=== PATIENT | female | born 1970 | race Two or more races ===

== ENCOUNTER 2018-04-04 20:40 | Inpatient (IN) ==
[2018-04-04] MEDS ORDERED: PROPOFOL 1,000 MG/100 ML BOTTLE IV ONE (20:52)
[2018-04-04] MEDS ORDERED: VECURONIUM 10 MG VIAL IV ONE (20:52)
[2018-04-04] MEDS: PROPOFOL 1,000 MG/100 ML BOTTLE IV SCH (21:00)
[2018-04-04] MEDS ORDERED: VECURONIUM 10 MG VIAL IV STA (21:10)
[2018-04-04 21:21] LABS: ABG Base Excess -3.4 MMOL/L (-2.5-2.5); ABG HCO3 21.7 MMOL/L (20-26); ABG Oxygen Saturation 99.1 % (95-100); ABG PCO2 34.6 MM HG (35-48); ABG PH 7.387 (7.35-7.45); ABG TCO2 17.4 MMOL/L (23-27)
[2018-04-04] MEDS ORDERED: LABETALOL 20 MG/4 ML SYRINGE IV STA ×2 (21:23→23:30)
[2018-04-04 21:35] LABS: Basophils # 0.1 10*3/uL (0.0-0.2); Basophils % 0.7 % (0.0-0.8); Eosinophils % 0.2 % (0.00-10.9); Hematocrit 57.6 VOL% (35.7-47.0); Hemoglobin 18.8 GM/DL (12.0-16.0); Immature Granulocytes % 0.3 %; Immature Granulocytes Absolute 0.06 #; Lymphocytes # 1.3 10*3/uL (1.4-4.0); Lymphocytes % 7.7 % (21.3-54.2); Mean Corpuscular HGB Conc 32.6 GM/DL (32-36); Mean Corpuscular Hemoglobin 31 PG (27-34); Mean Corpuscular Volume 95.5 FL (87-102); Mean Platelet Volume 10.1 FL (9.6-12.0); Monocytes # 0.5 10*3/uL (0.11-0.8); Monocytes % 2.9 % (1.7-12.7); Neutrophils # 15.4 10*3/uL (1.4-7.4); Neutrophils % 88.2 % (38.7-73.9); Platelet Count 307 T/CUMM (130-400); Red Blood Count 6.03 MC/CUMM (3.8-5.5); White Blood Count 17.4 T/CUMM (4-12)
[2018-04-04 22:00] LABS: Alanine Aminotransferase 26 U/L (13-56); Albumin 1.7 G/DL (3.4-5.0); Alkaline Phosphatase 145 U/L (45-117); Aspartate Amino Transferase 38 U/L (0-37); Bilirubin,Total < 0.39 MG/DL (0.2-1.0); Blood Urea Nitrogen 27 MG/DL (7-18); CKMB % 3.6 %; Calcium 8.7 MG/DL (8.5-10.1); Glucose 152 MG/DL (74-106); Osmolality,Calculated 280.8 MOS/KG (273-304); Potassium 4.3 MMOL/L (3.5-5.1); Sodium 137 MMOL/L (136-145); Total Protein 7.5 G/DL (6.4-8.3)
[2018-04-04] MEDS ORDERED: ONDANSETRON 4 MG/2 ML VIAL IV PRN (23:43)
[2018-04-04] MEDS ORDERED: GLUCAGON 1 MG VIAL IM PRN (23:43)
[2018-04-04] MEDS ORDERED: ALBUTEROL/IPRATROPIUM 3 ML NEB RESP TX PRN (23:43)
[2018-04-04] MEDS ORDERED: ALBUMIN 25% 50 GM in PREMIX 1 EACH IV ONE (23:43)
[2018-04-04] MEDS ORDERED: DEXTROSE 50% 25 GM/50 ML VIAL IV PRN (23:43)
[2018-04-05] MEDS: METOPROLOL TARTRATE 50 MG TABLET PO SCH ×3 (00:15→21:13)
[2018-04-05] MEDS: SODIUM CHLORIDE 0.9% 1,000 ML IV SCH ×3 (00:15→19:35)
[2018-04-05] MEDS: DOCUSATE SODIUM 100 MG CAPSULE NG SCH ×3 (00:15→21:13)
[2018-04-05] MEDS: INSULIN REGULAR 100 UNIT/ML SUBCUT SCH ×4 (00:15→18:26)
[2018-04-05] MEDS: cefTRIAXone 1,000 MG in SYRINGE 1 EACH IV SCH ×3 (00:32→23:58)
[2018-04-05 01:12] LABS: Apearance,Urine CLOUDY (Clear); Bacteria,Urine Many /HPF (Few); Bilirubin,Urine Negative (Negative); Blood, Urine Small mg/dL (Negative); Glucose,Urine (UA) >=500 mg/dL (Negative); Hyaline Casts,Urine 10 /LPF (0-3); Ketones,Urine 20 mg/dL (Negative); Mucus,Urine Occasional /LPF (Occasional); Nitrite,Urine Negative (Negative); Protein,Urine >=500 MG/DL; RBC,Urine 14 /HPF (0-4); Squamous Epithelial Cell,Urine Occasional /HPF (0-10); Urine Color Yellow (Yellow); Urine Specific Gravity 1.016 (1.001-1.035); Urine Urobilinogen < 2.0 EU/DL (0.2-1.0); WBC,Urine 166 /HPF (0-6)
[2018-04-05 01:15] LABS: ABG Base Excess -3.8 MMOL/L (-2.5-2.5); ABG HCO3 21.3 MMOL/L (20-26); ABG Oxygen Saturation 99.4 % (95-100); ABG PCO2 40.8 MM HG (35-48); ABG PH 7.338 (7.35-7.45)
[2018-04-05] MEDS: ALBUTEROL/IPRATROPIUM 3 ML NEB RESP TX SCH ×4 (01:15→20:01)
[2018-04-05 01:30] LABS: Barbiturates Screen,Urine Negative (Negative); Benzodiazepines Screen,Urine Positive (Negative); Cannabinoid Screen,Urine Negative (Negative); Opiate Screen,Urine Positive (Negative); Phencyclidine Screen,Urine Negative (Negative)
[2018-04-05] MEDS: hydrALAZINE 20 MG/1 ML VIAL IV PRN (02:20)
[2018-04-05 06:22] LABS: Basophils # 0.1 10*3/uL (0.0-0.2); Basophils % 0.5 % (0.0-0.8); Eosinophils # 0.2 10*3/uL (0.0-0.87); Hemoglobin 11.9 GM/DL (12.0-16.0); Immature Granulocytes % 0.3 %; Immature Granulocytes Absolute 0.05 #; Lymphocytes # 2.4 10*3/uL (1.4-4.0); Lymphocytes % 16.7 % (21.3-54.2); Mean Corpuscular HGB Conc 32.2 GM/DL (32-36); Mean Corpuscular Hemoglobin 31 PG (27-34); Mean Corpuscular Volume 95.1 FL (87-102); Monocytes # 0.9 10*3/uL (0.11-0.8); Monocytes % 5.8 % (1.7-12.7); Neutrophils % 75.7 % (38.7-73.9); Platelet Count 206 T/CUMM (130-400); Red Blood Count 3.89 MC/CUMM (3.8-5.5); Red Cell Distribution Width 13.8 % (9.3-17.3); White Blood Count 14.6 T/CUMM (4-12)
[2018-04-05 07:12] LABS: Albumin 2.2 G/DL (3.4-5.0); Calcium 7.9 MG/DL (8.5-10.1); Potassium 4.2 MMOL/L (3.5-5.1)
[2018-04-05] MEDS: amLODIPine 10 MG TABLET PO SCH (09:07)
[2018-04-05] MEDS: ENOXAPARIN 30 MG/0.3 ML SYRINGE SUBCUT SCH (09:07)
[2018-04-05] MEDS: PANTOPRAZOLE 40 MG VIAL IV SCH (09:08)
[2018-04-05] MEDS: PROPOFOL 1,000 MG/100 ML BOTTLE IV SCH (09:21)
[2018-04-05] MEDS ORDERED: SODIUM CHLORIDE 0.9% 1,000 ML IV ONE (17:42)
[2018-04-05] MEDS: fentaNYL 100 MCG/2 ML VIAL IV PRN (21:13)
[2018-04-06] MEDS: INSULIN REGULAR 100 UNIT/ML SUBCUT SCH ×4 (00:04→17:59)
[2018-04-06] MEDS: PROPOFOL 1,000 MG/100 ML BOTTLE IV SCH (00:56)
[2018-04-06] MEDS: ALBUTEROL/IPRATROPIUM 3 ML NEB RESP TX SCH ×4 (01:11→19:49)
[2018-04-06 03:36] LABS: Basophils # 0.1 10*3/uL (0.0-0.2); Basophils % 0.4 % (0.0-0.8); Eosinophils # 0.2 10*3/uL (0.0-0.87); Eosinophils % 1.2 % (0.00-10.9); Hematocrit 36.8 VOL% (35.7-47.0); Immature Granulocytes % 0.4 %; Immature Granulocytes Absolute 0.05 #; Lymphocytes # 1.6 10*3/uL (1.4-4.0); Lymphocytes % 11.3 % (21.3-54.2); Mean Corpuscular HGB Conc 32.6 GM/DL (32-36); Mean Corpuscular Hemoglobin 31 PG (27-34); Mean Corpuscular Volume 96.3 FL (87-102); Mean Platelet Volume 10.3 FL (9.6-12.0); Monocytes % 7.2 % (1.7-12.7); Neutrophils % 79.5 % (38.7-73.9); Platelet Count 211 T/CUMM (130-400); Red Blood Count 3.82 MC/CUMM (3.8-5.5); Red Cell Distribution Width 14.5 % (9.3-17.3); White Blood Count 13.8 T/CUMM (4-12)
[2018-04-06 03:46] LABS: ABG Base Excess -6.6 MMOL/L (-2.5-2.5); ABG HCO3 19.1 MMOL/L (20-26); ABG PCO2 39.2 MM HG (35-48); ABG PH 7.302 (7.35-7.45); ABG TCO2 17.3 MMOL/L (23-27)
[2018-04-06] MEDS: SODIUM CHLORIDE 0.9% 1,000 ML IV SCH (04:09)
[2018-04-06 04:22] LABS: Calcium 7.7 MG/DL (8.5-10.1); Osmolality,Calculated 291.8 MOS/KG (273-304); Potassium 3.9 MMOL/L (3.5-5.1)
[2018-04-06] MEDS: ACETAMINOPHEN 500 MG TABLET PO PRN ×2 (05:01→20:21)
[2018-04-06] MEDS: PIPERACILLIN/TAZOBACTAM 3,375 MG in SODIUM CHLORIDE 0.9% 100 ML IV SCH ×3 (05:01→20:29)
[2018-04-06 06:12] LABS: Pt O2 Delivery Device Ventilator
[2018-04-06 06:13] LABS: ABG Base Excess -7.6 MMOL/L (-2.5-2.5); ABG HCO3 18.7 MMOL/L (20-26); ABG Oxygen Saturation 97.9 % (95-100); ABG PH 7.278 (7.35-7.45); ABG PO2 128.5 MM HG (80-95)
[2018-04-06] MEDS: SODIUM BICARB INJ 100 MEQ in DEXTROSE 5% 1,000 ML IV SCH ×2 (08:52→20:27)
[2018-04-06] MEDS: PANTOPRAZOLE 40 MG VIAL IV SCH (08:52)
[2018-04-06] MEDS: amLODIPine 10 MG TABLET PO SCH (08:53)
[2018-04-06] MEDS: ENOXAPARIN 30 MG/0.3 ML SYRINGE SUBCUT SCH (08:53)
[2018-04-06] MEDS: HALOPERIDOL 5 MG/ML AMP IV SCH ×2 (08:53→20:22)
[2018-04-06] MEDS: DOCUSATE SODIUM 100 MG CAPSULE NG SCH ×2 (08:53→20:22)
[2018-04-06] MEDS: METOPROLOL TARTRATE 50 MG TABLET PO SCH ×2 (08:53→20:21)
[2018-04-06] MEDS: fentaNYL 100 MCG/2 ML VIAL IV PRN ×2 (13:18→17:10)
[2018-04-06] MEDS: hydrALAZINE 20 MG/1 ML VIAL IV PRN ×2 (15:15)
[2018-04-07] MEDS: INSULIN REGULAR 100 UNIT/ML SUBCUT SCH ×4 (00:39→18:11)
[2018-04-07] MEDS: ALBUTEROL/IPRATROPIUM 3 ML NEB RESP TX SCH ×4 (01:47→18:35)
[2018-04-07] MEDS: hydrALAZINE 20 MG/1 ML VIAL IV PRN ×4 (02:24→18:11)
[2018-04-07] MEDS: fentaNYL 100 MCG/2 ML VIAL IV PRN ×2 (04:24→06:08)
[2018-04-07] MEDS: PIPERACILLIN/TAZOBACTAM 3,375 MG in SODIUM CHLORIDE 0.9% 100 ML IV SCH ×3 (04:27→21:06)
[2018-04-07 04:42] LABS: ABG Base Excess -0.4 MMOL/L (-2.5-2.5); ABG Oxygen Saturation 96.9 % (95-100); ABG PCO2 45.1 MM HG (35-48); ABG PH 7.358 (7.35-7.45); ABG PO2 93.3 MM HG (80-95); ABG TCO2 22.5 MMOL/L (23-27); Allen Test Positive; Pt O2 Delivery Device Ventilator
[2018-04-07 05:33] LABS: Basophils % 0.3 % (0.0-0.8); Eosinophils # 0.4 10*3/uL (0.0-0.87); Eosinophils % 3.5 % (0.00-10.9); Hematocrit 35.4 VOL% (35.7-47.0); Hemoglobin 11.7 GM/DL (12.0-16.0); Immature Granulocytes % 0.5 %; Immature Granulocytes Absolute 0.06 #; Lymphocytes # 1.7 10*3/uL (1.4-4.0); Lymphocytes % 14.7 % (21.3-54.2); Mean Corpuscular HGB Conc 33.1 GM/DL (32-36); Mean Corpuscular Hemoglobin 32 PG (27-34); Mean Corpuscular Volume 95.9 FL (87-102); Mean Platelet Volume 10.7 FL (9.6-12.0); Monocytes # 0.8 10*3/uL (0.11-0.8); Neutrophils # 8.8 10*3/uL (1.4-7.4); Platelet Count 194 T/CUMM (130-400); Red Blood Count 3.69 MC/CUMM (3.8-5.5); Red Cell Distribution Width 14.1 % (9.3-17.3); White Blood Count 11.9 T/CUMM (4-12)
[2018-04-07 06:04] LABS: Prealbumin 9.5 MG/DL (20-40)
[2018-04-07 06:09] LABS: Albumin 1.6 G/DL (3.4-5.0); Bilirubin,Total 1.1 MG/DL (0.2-1.0); Calcium 7.9 MG/DL (8.5-10.1); Osmolality,Calculated 297.7 MOS/KG (273-304); Potassium 3.5 MMOL/L (3.5-5.1); Thyroid Stimulating Hormone 1.37 uIU/ml (0.358-3.74)
[2018-04-07] MEDS: SODIUM BICARB INJ 100 MEQ in DEXTROSE 5% 1,000 ML IV SCH ×2 (07:51→18:12)
[2018-04-07] MEDS ORDERED: POTASSIUM CHLORIDE 20 MEQ TABLET PO PRN (08:09)
[2018-04-07] MEDS ORDERED: PANTOPRAZOLE 40 MG TABLET PO SCH (09:00)
[2018-04-07] MEDS: HALOPERIDOL 5 MG/ML AMP IV SCH ×2 (10:09→21:11)
[2018-04-07] MEDS: LANSOPRAZOLE ODT 30 MG TABLET NG SCH (10:09)
[2018-04-07] MEDS: METOPROLOL TARTRATE 50 MG TABLET PO SCH ×2 (10:09→21:08)
[2018-04-07] MEDS: amLODIPine 10 MG TABLET PO SCH (10:09)
[2018-04-07] MEDS: DOCUSATE SODIUM 100 MG CAPSULE NG SCH ×2 (10:09→21:07)
[2018-04-07] MEDS: hydrALAZINE 25 MG TABLET PO SCH ×2 (10:10→15:28)
[2018-04-07] MEDS: ENOXAPARIN 30 MG/0.3 ML SYRINGE SUBCUT SCH (10:10)
[2018-04-07 12:09] LABS: ABG Base Excess 0.8 MMOL/L (-2.5-2.5); ABG HCO3 25.2 MMOL/L (20-26); ABG Oxygen Saturation 98.4 % (95-100); ABG PCO2 42.7 MM HG (35-48); ABG PH 7.392 (7.35-7.45); ABG TCO2 23.1 MMOL/L (23-27)
[2018-04-08] MEDS: hydrALAZINE 20 MG/1 ML VIAL IV PRN ×3 (00:35→15:11)
[2018-04-08] MEDS: INSULIN REGULAR 100 UNIT/ML SUBCUT SCH ×4 (00:35→17:48)
[2018-04-08] MEDS: ALBUTEROL/IPRATROPIUM 3 ML NEB RESP TX SCH ×4 (01:28→19:08)
[2018-04-08] MEDS ORDERED: LABETALOL 20 MG/4 ML SYRINGE IV ONE (02:36)
[2018-04-08] MEDS: PIPERACILLIN/TAZOBACTAM 3,375 MG in SODIUM CHLORIDE 0.9% 100 ML IV SCH ×3 (04:40→20:28)
[2018-04-08 04:41] LABS: Basophils # 0.1 10*3/uL (0.0-0.2); Basophils % 0.4 % (0.0-0.8); Eosinophils # 0.5 10*3/uL (0.0-0.87); Eosinophils % 4.1 % (0.00-10.9); Hematocrit 37.4 VOL% (35.7-47.0); Hemoglobin 12.1 GM/DL (12.0-16.0); Immature Granulocytes % 0.5 %; Immature Granulocytes Absolute 0.06 #; Lymphocytes # 1.5 10*3/uL (1.4-4.0); Lymphocytes % 12.9 % (21.3-54.2); Mean Corpuscular HGB Conc 32.4 GM/DL (32-36); Mean Corpuscular Hemoglobin 31 PG (27-34); Mean Corpuscular Volume 96.1 FL (87-102); Mean Platelet Volume 10.6 FL (9.6-12.0); Monocytes # 0.9 10*3/uL (0.11-0.8); Monocytes % 7.6 % (1.7-12.7); Neutrophils # 8.9 10*3/uL (1.4-7.4); Neutrophils % 74.5 % (38.7-73.9); Platelet Count 230 T/CUMM (130-400); Red Blood Count 3.89 MC/CUMM (3.8-5.5); Red Cell Distribution Width 13.6 % (9.3-17.3); White Blood Count 11.9 T/CUMM (4-12)
[2018-04-08 04:44] LABS: Allen Test Positive; Pt O2 Delivery Device Ventilator
[2018-04-08 04:46] LABS: ABG Base Excess 4.5 MMOL/L (-2.5-2.5); ABG HCO3 28.5 MMOL/L (20-26); ABG Oxygen Saturation 98.1 % (95-100); ABG PCO2 45.5 MM HG (35-48); ABG PH 7.423 (7.35-7.45); ABG TCO2 26.3 MMOL/L (23-27)
[2018-04-08 05:17] LABS: Calcium 7.9 MG/DL (8.5-10.1); Osmolality,Calculated 291.5 MOS/KG (273-304); Potassium 3.6 MMOL/L (3.5-5.1)
[2018-04-08] MEDS: SODIUM BICARB INJ 100 MEQ in DEXTROSE 5% 1,000 ML IV SCH ×2 (06:19→17:14)
[2018-04-08] MEDS: POTASSIUM CHLORIDE 20 MEQ/15 ML UDCUP PER TUBE PRN ×2 (06:33→08:40)
[2018-04-08] MEDS: ENOXAPARIN 30 MG/0.3 ML SYRINGE SUBCUT SCH (08:39)
[2018-04-08] MEDS: amLODIPine 10 MG TABLET PO SCH (08:40)
[2018-04-08] MEDS: LANSOPRAZOLE ODT 30 MG TABLET NG SCH (08:41)
[2018-04-08] MEDS: DOCUSATE SODIUM 100 MG CAPSULE NG SCH ×2 (08:41→20:28)
[2018-04-08] MEDS: HALOPERIDOL 5 MG/ML AMP IV SCH ×2 (08:42→22:04)
[2018-04-08] MEDS: METOPROLOL TARTRATE 50 MG TABLET PO SCH ×2 (08:47→20:28)
[2018-04-08 09:44] LABS: ABG Base Excess 5.7 MMOL/L (-2.5-2.5); ABG HCO3 29.4 MMOL/L (20-26); ABG Oxygen Saturation 91.7 % (95-100); ABG PCO2 45.4 MM HG (35-48); ABG PH 7.438 (7.35-7.45); ABG PO2 60.8 MM HG (80-95); ABG TCO2 27.3 MMOL/L (23-27)
[2018-04-08] MEDS: SPIRONOLACTONE 25 MG TABLET PO SCH (12:30)
[2018-04-08 12:42] LABS: ABG HCO3 29.9 MMOL/L (20-26); ABG PCO2 45.5 MM HG (35-48); ABG PH 7.442 (7.35-7.45); ABG TCO2 27.3 MMOL/L (23-27)
[2018-04-09] MEDS: hydrALAZINE 20 MG/1 ML VIAL IV PRN ×2 (00:06→06:10)
[2018-04-09] MEDS: INSULIN REGULAR 100 UNIT/ML SUBCUT SCH ×4 (00:07→18:27)
[2018-04-09] MEDS: SODIUM BICARB INJ 100 MEQ in DEXTROSE 5% 1,000 ML IV SCH ×2 (02:56→18:26)
[2018-04-09 03:11] LABS: ABG Base Excess 6.1 MMOL/L (-2.5-2.5); ABG Oxygen Saturation 97.2 % (95-100); ABG PH 7.453 (7.35-7.45); ABG PO2 89.2 MM HG (80-95); ABG TCO2 27.4 MMOL/L (23-27); Allen Test Positive; Pt O2 Delivery Device Venturi Mask
[2018-04-09] MEDS: PIPERACILLIN/TAZOBACTAM 3,375 MG in SODIUM CHLORIDE 0.9% 100 ML IV SCH ×3 (03:37→23:20)
[2018-04-09 04:47] LABS: Basophils # 0.1 10*3/uL (0.0-0.2); Basophils % 0.5 % (0.0-0.8); Eosinophils # 0.6 10*3/uL (0.0-0.87); Eosinophils % 6.4 % (0.00-10.9); Hematocrit 37.3 VOL% (35.7-47.0); Hemoglobin 12.5 GM/DL (12.0-16.0); Immature Granulocytes % 0.4 %; Immature Granulocytes Absolute 0.04 #; Lymphocytes # 1.5 10*3/uL (1.4-4.0); Lymphocytes % 15.7 % (21.3-54.2); Mean Corpuscular HGB Conc 33.5 GM/DL (32-36); Mean Corpuscular Hemoglobin 32 PG (27-34); Mean Corpuscular Volume 94.2 FL (87-102); Mean Platelet Volume 10.5 FL (9.6-12.0); Monocytes # 0.8 10*3/uL (0.11-0.8); Monocytes % 8.7 % (1.7-12.7); Neutrophils # 6.4 10*3/uL (1.4-7.4); Neutrophils % 68.3 % (38.7-73.9); Platelet Count 252 T/CUMM (130-400); Red Blood Count 3.96 MC/CUMM (3.8-5.5); Red Cell Distribution Width 13.2 % (9.3-17.3); White Blood Count 9.4 T/CUMM (4-12)
[2018-04-09 05:31] LABS: Calcium 8.3 MG/DL (8.5-10.1); Osmolality,Calculated 292.7 MOS/KG (273-304); Potassium 4.1 MMOL/L (3.5-5.1)
[2018-04-09] MEDS: ALBUTEROL/IPRATROPIUM 3 ML NEB RESP TX SCH ×4 (06:45→19:47)
[2018-04-09] MEDS: ENOXAPARIN 30 MG/0.3 ML SYRINGE SUBCUT SCH (10:00)
[2018-04-09] MEDS: LANSOPRAZOLE ODT 30 MG TABLET NG SCH (10:00)
[2018-04-09] MEDS: amLODIPine 10 MG TABLET PO SCH (10:00)
[2018-04-09] MEDS: METOPROLOL TARTRATE 50 MG TABLET PO SCH ×2 (10:00→20:42)
[2018-04-09] MEDS: SPIRONOLACTONE 25 MG TABLET PO SCH (10:00)
[2018-04-09] MEDS: DOCUSATE SODIUM 100 MG CAPSULE NG SCH ×2 (11:22→20:41)
[2018-04-09] MEDS: HALOPERIDOL 5 MG/ML AMP IV SCH ×2 (11:22→20:42)
[2018-04-10] MEDS: ALBUTEROL/IPRATROPIUM 3 ML NEB RESP TX SCH ×4 (00:10→19:05)
[2018-04-10] MEDS: INSULIN REGULAR 100 UNIT/ML SUBCUT SCH ×4 (00:24→17:34)
[2018-04-10] MEDS: hydrALAZINE 20 MG/1 ML VIAL IV PRN (00:24)
[2018-04-10 05:07] LABS: Basophils # 0.1 10*3/uL (0.0-0.2); Basophils % 0.5 % (0.0-0.8); Eosinophils # 0.6 10*3/uL (0.0-0.87); Eosinophils % 6.4 % (0.00-10.9); Hematocrit 34.5 VOL% (35.7-47.0); Hemoglobin 11.3 GM/DL (12.0-16.0); Immature Granulocytes % 0.4 %; Immature Granulocytes Absolute 0.04 #; Lymphocytes # 1.7 10*3/uL (1.4-4.0); Lymphocytes % 18.5 % (21.3-54.2); Mean Corpuscular HGB Conc 32.8 GM/DL (32-36); Mean Corpuscular Hemoglobin 32 PG (27-34); Mean Corpuscular Volume 96.9 FL (87-102); Mean Platelet Volume 10.7 FL (9.6-12.0); Monocytes # 0.8 10*3/uL (0.11-0.8); Monocytes % 8.9 % (1.7-12.7); Neutrophils # 6.1 10*3/uL (1.4-7.4); Neutrophils % 65.3 % (38.7-73.9); Platelet Count 263 T/CUMM (130-400); Red Blood Count 3.56 MC/CUMM (3.8-5.5); Red Cell Distribution Width 13.2 % (9.3-17.3); White Blood Count 9.4 T/CUMM (4-12)
[2018-04-10 05:36] LABS: Calcium 7.9 MG/DL (8.5-10.1); Osmolality,Calculated 297.3 MOS/KG (273-304); Potassium 4.3 MMOL/L (3.5-5.1)
[2018-04-10] MEDS: PIPERACILLIN/TAZOBACTAM 3,375 MG in SODIUM CHLORIDE 0.9% 100 ML IV SCH ×3 (05:40→21:24)
[2018-04-10] MEDS: LANSOPRAZOLE ODT 30 MG TABLET NG SCH (09:29)
[2018-04-10] MEDS: DOCUSATE SODIUM 100 MG CAPSULE NG SCH ×2 (09:29→21:13)
[2018-04-10] MEDS: amLODIPine 10 MG TABLET PO SCH (09:29)
[2018-04-10] MEDS: HALOPERIDOL 5 MG/ML AMP IV SCH ×2 (09:30→21:13)
[2018-04-10] MEDS: ENOXAPARIN 30 MG/0.3 ML SYRINGE SUBCUT SCH (09:30)
[2018-04-10] MEDS: SPIRONOLACTONE 25 MG TABLET PO SCH (09:30)
[2018-04-10] MEDS: METOPROLOL TARTRATE 50 MG TABLET PO SCH ×2 (09:30→21:13)
[2018-04-11] MEDS: INSULIN REGULAR 100 UNIT/ML SUBCUT SCH ×4 (00:16→18:53)
[2018-04-11] MEDS: ALBUTEROL/IPRATROPIUM 3 ML NEB RESP TX SCH ×4 (00:39→19:00)
[2018-04-11] MEDS: PIPERACILLIN/TAZOBACTAM 3,375 MG in SODIUM CHLORIDE 0.9% 100 ML IV SCH ×3 (06:41→21:06)
[2018-04-11 08:53] LABS: Prealbumin 14.1 MG/DL (20-40)
[2018-04-11] MEDS ORDERED: hydrALAZINE 25 MG TABLET ONE (09:41)
[2018-04-11] MEDS: HALOPERIDOL 5 MG/ML AMP IV SCH (10:09)
[2018-04-11] MEDS: METOPROLOL TARTRATE 50 MG TABLET PO SCH ×2 (10:09→21:14)
[2018-04-11] MEDS: LANSOPRAZOLE ODT 30 MG TABLET NG SCH (10:10)
[2018-04-11] MEDS: DOCUSATE SODIUM 100 MG CAPSULE NG SCH ×2 (10:10→21:14)
[2018-04-11] MEDS: ENOXAPARIN 30 MG/0.3 ML SYRINGE SUBCUT SCH (10:10)
[2018-04-11] MEDS: amLODIPine 10 MG TABLET PO SCH (11:17)
[2018-04-11] MEDS: LEVOFLOXACIN INJ 750 MG in PREMIX 1 EACH IV SCH (11:49)
[2018-04-11 15:32] LABS: Basophils # 0.1 10*3/uL (0.0-0.2); Basophils % 0.5 % (0.0-0.8); Eosinophils % 8.7 % (0.00-10.9); Hematocrit 37.8 VOL% (35.7-47.0); Hemoglobin 12.3 GM/DL (12.0-16.0); Immature Granulocytes % 0.5 %; Immature Granulocytes Absolute 0.05 #; Lymphocytes # 1.7 10*3/uL (1.4-4.0); Lymphocytes % 15.9 % (21.3-54.2); Mean Corpuscular HGB Conc 32.5 GM/DL (32-36); Mean Corpuscular Hemoglobin 31 PG (27-34); Mean Corpuscular Volume 96.4 FL (87-102); Mean Platelet Volume 9.5 FL (9.6-12.0); Monocytes % 9.4 % (1.7-12.7); Neutrophils # 7.1 10*3/uL (1.4-7.4); Platelet Count 293 T/CUMM (130-400); Red Blood Count 3.92 MC/CUMM (3.8-5.5); Red Cell Distribution Width 13.1 % (9.3-17.3); White Blood Count 10.9 T/CUMM (4-12)
[2018-04-11 16:01] LABS: Alanine Aminotransferase 13 U/L (13-56); Albumin 1.3 G/DL (3.4-5.0); Alkaline Phosphatase 85 U/L (45-117); Aspartate Amino Transferase 12 U/L (0-37); Bilirubin,Total < 0.39 MG/DL (0.2-1.0); Blood Urea Nitrogen 33 MG/DL (7-18); Calcium 8.5 MG/DL (8.5-10.1); Glucose 168 MG/DL (74-106); Osmolality,Calculated 289.4 MOS/KG (273-304); Potassium 4.2 MMOL/L (3.5-5.1); Sodium 140 MMOL/L (136-145); Total Protein 6.3 G/DL (6.4-8.3)
[2018-04-12] MEDS: ALBUTEROL/IPRATROPIUM 3 ML NEB RESP TX SCH ×4 (00:30→18:40)
[2018-04-12] MEDS: INSULIN REGULAR 100 UNIT/ML SUBCUT SCH ×4 (02:05→18:55)
[2018-04-12] MEDS: hydrALAZINE 20 MG/1 ML VIAL IV PRN (02:26)
[2018-04-12] MEDS: PIPERACILLIN/TAZOBACTAM 3,375 MG in SODIUM CHLORIDE 0.9% 100 ML IV SCH ×3 (05:25→21:28)
[2018-04-12 07:39] LABS: Apearance,Urine CLEAR (Clear); Bilirubin,Urine Negative (Negative); Blood, Urine Negative (Negative); Glucose,Urine (UA) >=500 mg/dL (Negative); Ketones,Urine 5 mg/dL (Negative); Mucus,Urine Occasional /LPF (Occasional); Nitrite,Urine Negative (Negative); Protein,Urine >=500 MG/DL; RBC,Urine 1 /HPF (0-4); Squamous Epithelial Cell,Urine Occasional /HPF (0-10); Urine Color Yellow (Yellow); Urine Specific Gravity 1.014 (1.001-1.035); Urine Urobilinogen < 2.0 EU/DL (0.2-1.0); WBC,Urine 1 /HPF (0-6)
[2018-04-12 09:26] LABS: Basophils # 0.1 10*3/uL (0.0-0.2); Basophils % 0.7 % (0.0-0.8); Eosinophils % 8.7 % (0.00-10.9); Hematocrit 38.4 VOL% (35.7-47.0); Hemoglobin 12.4 GM/DL (12.0-16.0); Immature Granulocytes % 0.6 %; Immature Granulocytes Absolute 0.07 #; Lymphocytes # 1.8 10*3/uL (1.4-4.0); Lymphocytes % 15.9 % (21.3-54.2); Mean Corpuscular HGB Conc 32.3 GM/DL (32-36); Mean Corpuscular Hemoglobin 31 PG (27-34); Mean Corpuscular Volume 96.2 FL (87-102); Mean Platelet Volume 10.2 FL (9.6-12.0); Monocytes # 1.3 10*3/uL (0.11-0.8); Monocytes % 11.2 % (1.7-12.7); Neutrophils # 7.2 10*3/uL (1.4-7.4); Neutrophils % 62.9 % (38.7-73.9); Platelet Count 341 T/CUMM (130-400); Red Blood Count 3.99 MC/CUMM (3.8-5.5); Red Cell Distribution Width 13.2 % (9.3-17.3); White Blood Count 11.4 T/CUMM (4-12)
[2018-04-12 09:59] LABS: Calcium 8.7 MG/DL (8.5-10.1); Osmolality,Calculated 292.3 MOS/KG (273-304); Potassium 4.3 MMOL/L (3.5-5.1)
[2018-04-12 10:01] LABS: Alanine Aminotransferase 13 U/L (13-56); Albumin 1.3 G/DL (3.4-5.0); Alkaline Phosphatase 107 U/L (45-117); Aspartate Amino Transferase 17 U/L (0-37); Bilirubin,Total < 0.39 MG/DL (0.2-1.0); Blood Urea Nitrogen 32 MG/DL (7-18); Calcium 8.8 MG/DL (8.5-10.1); Glucose 186 MG/DL (74-106); Osmolality,Calculated 292.3 MOS/KG (273-304); Potassium 4.3 MMOL/L (3.5-5.1); Sodium 141 MMOL/L (136-145); Total Protein 6.4 G/DL (6.4-8.3)
[2018-04-12] MEDS: METOPROLOL TARTRATE 50 MG TABLET PO SCH ×2 (10:06→21:29)
[2018-04-12] MEDS: amLODIPine 10 MG TABLET PO SCH (10:06)
[2018-04-12] MEDS: DOCUSATE SODIUM 100 MG CAPSULE NG SCH ×2 (10:06→21:29)
[2018-04-12] MEDS: LANSOPRAZOLE ODT 30 MG TABLET NG SCH (10:06)
[2018-04-13] MEDS: ALBUTEROL/IPRATROPIUM 3 ML NEB RESP TX SCH ×4 (00:10→19:32)
[2018-04-13] MEDS: INSULIN REGULAR 100 UNIT/ML SUBCUT SCH ×4 (00:54→18:04)
[2018-04-13] MEDS: PIPERACILLIN/TAZOBACTAM 3,375 MG in SODIUM CHLORIDE 0.9% 100 ML IV SCH ×3 (06:05→22:04)
[2018-04-13 06:15] LABS: Calcium 8.8 MG/DL (8.5-10.1); Osmolality,Calculated 297.8 MOS/KG (273-304); Potassium 4.2 MMOL/L (3.5-5.1)
[2018-04-13] MEDS: METOPROLOL TARTRATE 50 MG TABLET PO SCH ×2 (08:16→22:03)
[2018-04-13] MEDS: DOCUSATE SODIUM 100 MG CAPSULE NG SCH ×2 (08:16→22:03)
[2018-04-13] MEDS: amLODIPine 10 MG TABLET PO SCH (08:16)
[2018-04-13] MEDS: LANSOPRAZOLE ODT 30 MG TABLET NG SCH (08:17)
[2018-04-13] MEDS: LEVOFLOXACIN INJ 750 MG in PREMIX 1 EACH IV SCH (08:17)
[2018-04-14] MEDS: INSULIN REGULAR 100 UNIT/ML SUBCUT SCH ×4 (01:16→17:45)
[2018-04-14] MEDS: ALBUTEROL/IPRATROPIUM 3 ML NEB RESP TX SCH ×4 (01:42→19:09)
[2018-04-14] MEDS: PIPERACILLIN/TAZOBACTAM 3,375 MG in SODIUM CHLORIDE 0.9% 100 ML IV SCH ×3 (06:09→21:38)
[2018-04-14 06:43] LABS: Calcium 8.7 MG/DL (8.5-10.1); Osmolality,Calculated 297.8 MOS/KG (273-304); Potassium 4.5 MMOL/L (3.5-5.1); Prealbumin 14.5 MG/DL (20-40)
[2018-04-14] MEDS: DOCUSATE SODIUM 100 MG CAPSULE NG SCH ×2 (09:11→21:26)
[2018-04-14] MEDS: METOPROLOL TARTRATE 50 MG TABLET PO SCH ×2 (09:11→21:26)
[2018-04-14] MEDS: LANSOPRAZOLE ODT 30 MG TABLET NG SCH (09:11)
[2018-04-14] MEDS: amLODIPine 10 MG TABLET PO SCH (09:12)
[2018-04-14 11:05] LABS: Appearance,CSF Clear; Lymphocytes,CSF 84 %; Monocytes,CSF 16 %; Red Blood Cell,CSF < 1 C/CUMM; White Blood Cell,CSF 5 C/CUMM
[2018-04-14] MEDS: ACETAMINOPHEN 500 MG TABLET PO PRN (21:26)
[2018-04-15] MEDS: ALBUTEROL/IPRATROPIUM 3 ML NEB RESP TX SCH ×4 (00:14→19:16)
[2018-04-15] MEDS: INSULIN REGULAR 100 UNIT/ML SUBCUT SCH ×4 (00:28→18:45)
[2018-04-15] MEDS: PIPERACILLIN/TAZOBACTAM 3,375 MG in SODIUM CHLORIDE 0.9% 100 ML IV SCH ×3 (06:00→21:34)
[2018-04-15 06:49] LABS: Calcium 8.5 MG/DL (8.5-10.1); Osmolality,Calculated 304.4 MOS/KG (273-304); Potassium 4.4 MMOL/L (3.5-5.1)
[2018-04-15] MEDS ORDERED: LORazepam 2 MG/1 ML VIAL IV ONE (09:10)
[2018-04-15 09:42] LABS: Glucose,CSF 120 MG/DL (40-70)
[2018-04-15] MEDS: DOCUSATE SODIUM 100 MG CAPSULE NG SCH ×2 (09:48→21:34)
[2018-04-15] MEDS: METOPROLOL TARTRATE 50 MG TABLET PO SCH ×2 (09:48→21:34)
[2018-04-15] MEDS: LANSOPRAZOLE ODT 30 MG TABLET NG SCH (09:48)
[2018-04-15] MEDS: amLODIPine 10 MG TABLET PO SCH (09:49)
[2018-04-15] MEDS: LEVOFLOXACIN INJ 750 MG in PREMIX 1 EACH IV SCH (09:50)
[2018-04-16] MEDS: ALBUTEROL/IPRATROPIUM 3 ML NEB RESP TX SCH ×4 (00:04→19:08)
[2018-04-16] MEDS: INSULIN REGULAR 100 UNIT/ML SUBCUT SCH ×4 (00:25→17:57)
[2018-04-16] MEDS: PIPERACILLIN/TAZOBACTAM 3,375 MG in SODIUM CHLORIDE 0.9% 100 ML IV SCH ×3 (05:28→21:38)
[2018-04-16 06:54] LABS: Calcium 8.5 MG/DL (8.5-10.1); Osmolality,Calculated 298.1 MOS/KG (273-304); Potassium 4.8 MMOL/L (3.5-5.1)
[2018-04-16] MEDS: DOCUSATE SODIUM 100 MG CAPSULE NG SCH ×2 (09:02→21:39)
[2018-04-16] MEDS: LANSOPRAZOLE ODT 30 MG TABLET NG SCH (09:02)
[2018-04-16] MEDS: amLODIPine 10 MG TABLET PO SCH (09:02)
[2018-04-16] MEDS: METOPROLOL TARTRATE 50 MG TABLET PO SCH ×2 (09:02→21:38)
[2018-04-16 13:26] LABS: M. Tuberculosis PCR Result Negative (Negative); M. Tuberculosis PCR Source CSF
[2018-04-17] MEDS: ZINC OXIDE PASTE 113 GM TUBE TOP SCH ×3 (00:24→21:26)
[2018-04-17] MEDS: INSULIN REGULAR 100 UNIT/ML SUBCUT SCH ×5 (00:32→23:59)
[2018-04-17] MEDS: ALBUTEROL/IPRATROPIUM 3 ML NEB RESP TX SCH ×4 (01:20→19:18)
[2018-04-17] MEDS: PIPERACILLIN/TAZOBACTAM 3,375 MG in SODIUM CHLORIDE 0.9% 100 ML IV SCH ×3 (05:36→21:22)
[2018-04-17] MEDS ORDERED: PHENYLEPHRINE DRIP 40 MG/250 ML PREMIX IV ONE (07:51)
[2018-04-17] MEDS ORDERED: PHENYLEPHRINE DRIP 40 MG/250 ML PREMIX IV PRN (07:54)
[2018-04-17 08:31] LABS: Basophils # 0.1 10*3/uL (0.0-0.2); Basophils % 0.4 % (0.0-0.8); Eosinophils # 0.8 10*3/uL (0.0-0.87); Eosinophils % 3.9 % (0.00-10.9); Hematocrit 33.2 VOL% (35.7-47.0); Hemoglobin 10.1 GM/DL (12.0-16.0); Immature Granulocytes % 4.6 %; Immature Granulocytes Absolute 0.88 #; Lymphocytes % 20.8 % (21.3-54.2); Mean Corpuscular HGB Conc 30.4 GM/DL (32-36); Mean Corpuscular Hemoglobin 32 PG (27-34); Mean Corpuscular Volume 106.1 FL (87-102); Mean Platelet Volume 10.8 FL (9.6-12.0); Monocytes # 0.6 10*3/uL (0.11-0.8); Monocytes % 3.3 % (1.7-12.7); NRBC # 0.06 10*3/uL; Neutrophils # 12.9 10*3/uL (1.4-7.4); Platelet Count 321 T/CUMM (130-400); Red Blood Count 3.13 MC/CUMM (3.8-5.5); Red Cell Distribution Width 13.8 % (9.3-17.3); White Blood Count 19.2 T/CUMM (4-12)
[2018-04-17 08:33] LABS: ABG Base Excess -11.9 MMOL/L (-2.5-2.5); ABG HCO3 15.1 MMOL/L (20-26); ABG Oxygen Saturation 98.7 % (95-100); ABG PCO2 47.7 MM HG (35-48); ABG TCO2 15.8 MMOL/L (23-27); Allen Test Positive; Pt O2 Delivery Device Ventilator
[2018-04-17 08:35] LABS: ABG PH 7.154 (7.35-7.45)
[2018-04-17 08:45] LABS: Apearance,Urine CLEAR (Clear); Bacteria,Urine Occasional /HPF (Few); Bilirubin,Urine Negative (Negative); Blood, Urine Negative (Negative); Glucose,Urine (UA) >=500 mg/dL (Negative); Ketones,Urine 5 mg/dL (Negative); Nitrite,Urine Negative (Negative); Protein,Urine >=500 MG/DL; RBC,Urine 1 /HPF (0-4); Urine Color Yellow (Yellow); Urine Specific Gravity 1.017 (1.001-1.035); Urine Urobilinogen < 2.0 EU/DL (0.2-1.0); WBC,Urine 1 /HPF (0-6)
[2018-04-17 09:00] LABS: Calcium 8.8 MG/DL (8.5-10.1); Osmolality,Calculated 309.4 MOS/KG (273-304); Potassium 5.7 MMOL/L (3.5-5.1)
[2018-04-17 09:14] LABS: Band Neutrophils 2 % (0-10); Eosinophils 2 % (0-10); Lymphocytes 21 % (20-55); Segmented Neutrophils 72 % (50-85); Total Cells Counted 100
[2018-04-17 09:15] LABS: Platelet Estimate Increased
[2018-04-17] MEDS: SPIRONOLACTONE 25 MG TABLET PO SCH (10:51)
[2018-04-17] MEDS: DOCUSATE SODIUM 100 MG CAPSULE NG SCH ×2 (10:51→21:24)
[2018-04-17] MEDS: LEVOFLOXACIN INJ 750 MG in PREMIX 1 EACH IV SCH (10:52)
[2018-04-17] MEDS: SODIUM CHLORIDE 0.45% 1,000 ML IV SCH ×2 (10:52→17:33)
[2018-04-17] MEDS: ENOXAPARIN 30 MG/0.3 ML SYRINGE SUBCUT SCH (10:52)
[2018-04-17] MEDS: amLODIPine 10 MG TABLET PO SCH ×2 (10:54→13:03)
[2018-04-17] MEDS: PANTOPRAZOLE 40 MG VIAL IV SCH (11:44)
[2018-04-17] MEDS: METOPROLOL TARTRATE 50 MG TABLET PO SCH ×2 (11:44→21:25)
[2018-04-17] MEDS: hydrALAZINE 20 MG/1 ML VIAL IV PRN ×2 (13:02→17:05)
[2018-04-17 14:55] LABS: Calcium 8.8 MG/DL (8.5-10.1); Osmolality,Calculated 304.7 MOS/KG (273-304)
[2018-04-18] MEDS: ALBUTEROL/IPRATROPIUM 3 ML NEB RESP TX SCH ×4 (01:16→18:56)
[2018-04-18] MEDS: PIPERACILLIN/TAZOBACTAM 3,375 MG in SODIUM CHLORIDE 0.9% 100 ML IV SCH ×3 (04:03→21:43)
[2018-04-18] MEDS: SODIUM CHLORIDE 0.45% 1,000 ML IV SCH (04:09)
[2018-04-18 04:46] LABS: ABG HCO3 27.1 MMOL/L (20-26); ABG Oxygen Saturation 98.3 % (95-100); ABG PCO2 30.2 MM HG (35-48); ABG PH 7.523 (7.35-7.45); ABG TCO2 20.8 MMOL/L (23-27); Allen Test Positive; Pt O2 Delivery Device Ventilator
[2018-04-18 05:27] LABS: Calcium 7.5 MG/DL (8.5-10.1); Osmolality,Calculated 307.1 MOS/KG (273-304); Potassium 3.7 MMOL/L (3.5-5.1); Prealbumin 12.9 MG/DL (20-40)
[2018-04-18] MEDS: INSULIN REGULAR 100 UNIT/ML SUBCUT SCH ×3 (05:45→18:10)
[2018-04-18] MEDS: ENOXAPARIN 30 MG/0.3 ML SYRINGE SUBCUT SCH (09:00)
[2018-04-18] MEDS: POTASSIUM CHLORIDE 20 MEQ/15 ML UDCUP PER TUBE PRN (09:00)
[2018-04-18] MEDS: METOPROLOL TARTRATE 50 MG TABLET PO SCH ×2 (09:00→21:42)
[2018-04-18] MEDS: amLODIPine 10 MG TABLET PO SCH (09:00)
[2018-04-18] MEDS: DOCUSATE SODIUM 100 MG/10 ML UDCUP NG SCH ×2 (09:00→21:42)
[2018-04-18] MEDS: PANTOPRAZOLE 40 MG VIAL IV SCH (09:00)
[2018-04-18] MEDS: SODIUM CHLORIDE 23.4% CONC INJ 38.5 MEQ in STERILE WATER INJ 1,000 ML IV SCH ×2 (09:15→17:45)
[2018-04-18] MEDS: ZINC OXIDE PASTE 113 GM TUBE TOP SCH ×2 (10:00→21:42)
[2018-04-18] MEDS: SPIRONOLACTONE 25 MG TABLET PO SCH (11:00)
[2018-04-19] MEDS: ALBUTEROL/IPRATROPIUM 3 ML NEB RESP TX SCH ×3 (00:39→13:52)
[2018-04-19] MEDS: INSULIN REGULAR 100 UNIT/ML SUBCUT SCH ×3 (01:00→12:00)
[2018-04-19] MEDS: SODIUM CHLORIDE 23.4% CONC INJ 38.5 MEQ in STERILE WATER INJ 1,000 ML IV SCH ×3 (02:10→18:58)
[2018-04-19 03:12] LABS: ABG Base Excess -0.9 MMOL/L (-2.5-2.5); ABG HCO3 23.7 MMOL/L (20-26); ABG Oxygen Saturation 96.6 % (95-100); ABG PCO2 29.4 MM HG (35-48); ABG PH 7.476 (7.35-7.45); ABG PO2 88.5 MM HG (80-95); ABG TCO2 19.1 MMOL/L (23-27); Allen Test Positive; Pt O2 Delivery Device Ventilator
[2018-04-19] MEDS: PIPERACILLIN/TAZOBACTAM 3,375 MG in SODIUM CHLORIDE 0.9% 100 ML IV SCH ×2 (06:11→13:50)
[2018-04-19 06:20] LABS: Basophils # 0.1 10*3/uL (0.0-0.2); Basophils % 0.3 % (0.0-0.8); Eosinophils # 1.5 10*3/uL (0.0-0.87); Eosinophils % 8.3 % (0.00-10.9); Hematocrit 29.4 VOL% (35.7-47.0); Hemoglobin 9.5 GM/DL (12.0-16.0); Immature Granulocytes % 0.6 %; Lymphocytes # 1.8 10*3/uL (1.4-4.0); Lymphocytes % 9.8 % (21.3-54.2); Mean Corpuscular HGB Conc 32.3 GM/DL (32-36); Mean Corpuscular Hemoglobin 31 PG (27-34); Mean Corpuscular Volume 96.1 FL (87-102); Mean Platelet Volume 11.5 FL (9.6-12.0); Monocytes # 0.9 10*3/uL (0.11-0.8); Monocytes % 4.9 % (1.7-12.7); Neutrophils # 13.6 10*3/uL (1.4-7.4); Neutrophils % 76.1 % (38.7-73.9); Platelet Count 214 T/CUMM (130-400); Red Blood Count 3.06 MC/CUMM (3.8-5.5); Red Cell Distribution Width 13.9 % (9.3-17.3); White Blood Count 17.8 T/CUMM (4-12)
[2018-04-19 06:46] LABS: Calcium 7.7 MG/DL (8.5-10.1); Osmolality,Calculated 302.7 MOS/KG (273-304); Potassium 3.3 MMOL/L (3.5-5.1)
[2018-04-19 06:48] LABS: Hypochromasia 2+; Microcytosis 2+
[2018-04-19] MEDS: POTASSIUM CHLORIDE 20 MEQ/15 ML UDCUP PER TUBE PRN ×3 (08:00→12:00)
[2018-04-19] MEDS ORDERED: amLODIPine 5 MG TABLET PO SCH (09:00)
[2018-04-19] MEDS: ENOXAPARIN 30 MG/0.3 ML SYRINGE SUBCUT SCH (09:30)
[2018-04-19] MEDS: PANTOPRAZOLE 40 MG VIAL IV SCH (09:30)
[2018-04-19] MEDS: DOCUSATE SODIUM 100 MG/10 ML UDCUP NG SCH (09:30)
[2018-04-19] MEDS: METOPROLOL TARTRATE 50 MG TABLET PO SCH (09:30)
[2018-04-19] MEDS: ZINC OXIDE PASTE 113 GM TUBE TOP SCH (10:00)
[2018-04-19] MEDS: LEVOFLOXACIN INJ 750 MG in PREMIX 1 EACH IV SCH (10:40)
[2018-04-19 15:09] VITALS: BP 105/67
[2018-04-19] MEDS ORDERED: LORazepam 2 MG/1 ML VIAL IV PRN (16:31)
[2018-04-19] MEDS ORDERED: MORPHINE 4 MG/1 ML VIAL IV PRN (16:31)
== END 2018-04-19 17:00 | disposition expired | DRG 91 ==
LOC: N.ED 20:40 → SUATTDRO 23:07 → N.EDINP 23:07 → N.ICU 23:39 → N.2E 04-09 20:15 → N.ICU 04-17 07:53
PROVIDERS: ADMIT Family Medicine; ATTEND Family Medicine